=== PATIENT | female | born 1960 | race African-American/Black ===

== ENCOUNTER 2017-06-22 08:17 | Observation (INO) | payer SELFPAY ==
[2017-06-22 08:48] LABS: #Basophils 0.1 thou/uL (0.0-0.2); #Eosinphils 0.2 thou/uL (0.0-0.7); #Lymphocytes 2.7 thou/uL (1.20-3.40); #Monocytes 0.7 thou/uL (0.11-0.59); #Neutrophils 5.1 thou/uL (1.40-6.50); %Basophils 0.6 % (0.0-1.0); %Lymphocytes 31.3 % (21.0-51.0); %Monocytes 8.1 % (0.0-10.0); Hemoglobin 12.2 g/dL (12.0-16.0); Mean Corpuscular Hemoglobin 26.9 pg (27.0-31.0); Mean Corpuscular Volume 86.6 fl (81.0-99.0); Mean Platelet Volume 7.8 fL (7.4-10.4); Platelet Count 320 thou/uL (130-400); RBC Distribution Width 13.3 % (11.5-14.5); Red Blood Cell (RBC) Count 4.53 mill/uL (4.20-5.40); White Blood Cell (WBC) Count 8.8 thou/uL (4.8-10.8)
[2017-06-22] MEDS ORDERED: Metoprolol Tartrate 5 MG/5 ML VIAL ONE ×2 (08:50→11:06)
[2017-06-22 08:58] LABS: ALT (SGPT) 12 U/L (8-55); AST (SGOT) 14 U/L (5-34); Albumin 4.2 g/dL (3.5-5.0); Alkaline Phosphatase 117 U/L (40-150); Anion Gap 13 mmol/L (10-20); BUN (Urea Nitrogen) 22 mg/dL (9.8-20.1); Bilirubin, Total 0.2 mg/dL (0.2-1.2); CK (CPK) 69 U/L (29-168); Calc. Creatinine Clearance 0 mL/min (70-130); Calcium 9.8 mg/dL (7.8-10.44); Carbon Dioxide 25 mmol/L (22-29); Chloride 104 mmol/L (98-107); Estimated GFR-MDRD 44; Globulin 3.6 g/dL (2.4-3.5); Glucose 110 mg/dL (70-105); Potassium 4.1 mmol/L (3.5-5.1); Protein, Total 7.8 g/dL (6.0-8.3); Sodium 138 mmol/L (136-145)
[2017-06-22 09:02] LABS: CKMB 0.8 ng/mL (0-6.6); Troponin I 0.015 ng/mL (< 0.028)
--- NOTE | 2017-06-22 09:24 | RAD ---
CHEST 1 VIEW: COMPARISON: 10/23/16. HISTORY: Chest pain. FINDINGS: Normal cardiac silhouette. Pulmonary vessels and hilum are normal. No mass. No consolidation. No osseous abnormalities or pneumothorax. IMPRESSION: No acute cardiopulmonary process. POS: [facility]
[2017-06-22] MEDS ORDERED: hydrALAZINE 20 MG/ML VIAL ONE (10:23)
[2017-06-22 11:47] LABS: Amphetamine Not Detected (NotDetected); Barbiturates Screen Not Detected (NotDetected); Benzodiazepine Screen Not Detected (NotDetected); Cocaine Metabolite Screen Not Detected (NotDetected); Medtox Control Line Valid? VALID (VALID); Medtox Reader # READER 1; Methadone Not Detected (NotDetected); Methamphetamine Not Detected (NotDetected); Opiate Screen Not Detected (NotDetected); Oxycodone Screen Not Detected (NotDetected); Phencyclidine (PCP) Not Detected (NotDetected); THC/Cannabinoid Screen Not Detected (NotDetected); Tricyclic Screen Not Detected (NotDetected)
[2017-06-22 11:59] LABS: Troponin I 0.012 ng/mL (< 0.028)
[2017-06-22] MEDS ORDERED: hydrALAZINE 20 MG/ML VIAL SLOW IVP PRN (13:17)
[2017-06-22] MEDS ORDERED: Loratadine 10 MG TAB PO PRN (13:17)
[2017-06-22] MEDS ORDERED: Senokot 8.6 MG TAB PO PRN (13:17)
[2017-06-22] MEDS ORDERED: Eucerin (Mineral Oil/Petrolatum,White) 30 gm Jar TOP PRN (13:17)
[2017-06-22] MEDS ORDERED: Sodium Chloride 0.65% Nasal 44 ML BOT EA NARE PRN (13:17)
[2017-06-22] MEDS ORDERED: Zolpidem Tartrate 5 MG TAB PO PRN (13:17)
[2017-06-22] MEDS ORDERED: Artificial Tears 18 DROP/0.9 ML EA EYE PRN (13:17)
[2017-06-22] MEDS ORDERED: Milk Of Magnesia 30 ML UDCUP PO PRN (13:17)
[2017-06-22] MEDS ORDERED: Loperamide HCl 2 MG CAP PO PRN (13:17)
[2017-06-22] MEDS ORDERED: Chloraseptic Spray 180 ml Bottle PO PRN (13:17)
[2017-06-22] MEDS ORDERED: cloNIDine 0.1 MG TAB PO PRN (13:17)
[2017-06-22] MEDS ORDERED: Mag-Al 1200 mg/1200 mg/30 ML UDCUP PO PRN (13:17)
[2017-06-22] MEDS ORDERED: Ondansetron ODT 4 MG TAB PO PRN (13:17)
[2017-06-22] MEDS ORDERED: Diabetic Tussin 200 MG/10 ML UDCUP PO PRN (13:17)
[2017-06-22] MEDS ORDERED: Nitroglycerin 0.4 MG TAB (25 Tab Bottle) SL PRN (13:17)
[2017-06-22] MEDS ORDERED: Ondansetron HCl/PF 4 MG/2 ML Vial IVP PRN (13:17)
[2017-06-22] MEDS ORDERED: Acetaminophen 325 MG TAB PO PRN (13:17)
--- NOTE | 2017-06-22 13:21 | HP ---
PRIMARY CARE PHYSICIAN: Dr. Gayle Ly at [facility]. REASON FOR ADMISSION: Hypertensive urgency and chest pain. HISTORY OF PRESENT ILLNESS: A 56-year-old female who has history of breast cancer o n tamoxifen therapy as well as history of hypertension and obesity who came to the emergency room for complaint of chest pain and headache. The patient reports that for the last 3 weeks she has on and off headache and chest pain. She feels a pounding sensation in her left side of chest. She denies a ny associated nausea, vomiting, diaphoresis. She feels sometimes shortness of breath. She sometimes feels tingling and numbness sensation in upper extremity on the left side. She was also having diff use headache which is predominantly occipital and throbbing in nature. The patient reports that she is taking blood pressure medication regularly, but her blood pressure is very difficult to control and most of the time it remains high. The patient took her home medicatio n today. Despite that, her blood pressure in the emergency room was 224/121. Patient did not have a ny focal motor or sensory symptoms. She did not have any blurred vision. She was not having any ort hopnea, PND, or leg swelling. She denies any fever or chills. She denies taking NSAIDs. She denies any excess salt intake. REVIEW OF SYSTEMS: The following complete review of systems was negative, unless otherwise mentioned in the HPI or below: Constitutional: Weight loss or gain, ability to conduct usual activities. Skin: Rash, itching. Eyes: Double vision, pain. ENT/Mouth: Nose bleeding, neck stiffness, pain, tenderness. Cardiovascular: Palpitations, dyspnea on exertion, orthopnea. Respiratory: Shortness of breath, wheezing, cough, hemoptysis, fever or night sweats. Gastrointestinal: Poor appetite, abdominal pain, heartburn, nausea, vomiting, constipation, or diarrhea. Genitourinary: Urgency, frequency, dysuria, nocturia. Musculoskeletal: Pain, swelling. Neurologic/Psychiatric: Anxiety, depression. Allergy/Immunologic: Skin rash, bleeding tendency. Please see my HPI for pertinent positive and negative. All other review of systems reviewed and nega tive except as mentioned in the HPI. PAST MEDICAL HISTORY: History of breast cancer, hypertension, gastroesophageal reflux disease, vitam in D deficiency, obesity. PAST SURGICAL HISTORY: Breast biopsy, left breast lumpectomy, , hysterectomy, right knee camacho rgery with meniscectomy and chondroplasty, left knee surgery with chondroplasty and meniscectomy, tub al ligation. PAST PSYCHIATRIC HISTORY: Reviewed and negative. SOCIAL HISTORY: The patient is and lives at home by herself. No history of tobacco, alcohol or illicit drug abuse. FAMILY HISTORY: No strong family history of premature coronary artery disease, stroke or cancer, hyp ertension runs among several family members. One brother diagnosed with colon and prostate cancer. Mother in her old age, diagnosed with heart disease. One of sister also has kidney disease. ALLERGIES: HYDRALAZINE as per report. EMERGENCY ROOM COURSE: The patient is given hydralazine 10 mg IV push, metoprolol 5 mg IV push, meto prolol 5 mg IV push afterward. CURRENT HOME MEDICATIONS: Hydrochlorothiazide 25 mg p.o. daily, [place] 1 tablet q.6 hourly p.r.n., lo sartan 100 mg p.o. daily, Prilosec 40 mg p.o. daily, Tamoxifen 20 mg p.o. daily. PHYSICAL EXAMINATION: VITAL SIGNS: On arrival, blood pressure 224/121, pulse 93, respiratory rate 20, temperature 98.7, sa turation 97% on room air, weight 106.1 kilograms. GENERAL: The patient is currently alert, awake, no acute distress, hypertensive, chest pain free. HEENT: Normocephalic, atraumatic. Eyes: Pupils round, reactive to light. Extraocular muscle intac t. ENT: Oropharynx within normal limits. Moist mucous membranes. No oral lesions. No pharyngeal erythema, no exudate. NECK: Supple, no JVD, no thyromegaly, no carotid bruit, no jugular venous distention. LUNGS: Clear to auscultation without any rhonchi or rales. CARDIAC: S1, S2 regular without any murmur. ABDOMEN: Obesity present. Bowel sounds present, nontender, nondistended. No organomegaly, no mass, no suprapubic tenderness. BACK: Unremarkable, no CVA tenderness. EXTREMITIES: Upper extremity passive movement of all joints are normal. Lower extremities: No antonio a. Good peripheral pulsation. SKIN: No skin rash. HEMATOLOGIC: No lymphadenopathy. PSYCHIATRIC: Normal affect. NEUROLOGIC: The patient is alert, oriented x3. Cranial nerves II-XII intact. Motor 5/5 in all four limbs. Sensation bilaterally symmetrical. No cerebellar sign. Speech normal. Planter bilateral f lexor. Gait normal. SIGNIFICANT LABS: EKG showing normal sinus rhythm, LVH with T-wave changes in lateral leads. Chest x-ray based on my review, no acute cardiopulmonary process. CBC: WBC 8.8, hemoglobin 12.2, platelets 320. BMP: Sodium 138, potassium 4.1, chloride 104, carbon dioxide 25, anion gap 13, BUN 22, creatinine 1.44, glucose 110, calcium 9.8. LFT: AST 14, ALT 12, alkaline phosphatase 117, albumin 4.2, CK 69, CK-MB 0.8, troponin I 0.015 and 0 .012. Urine drug screen negative. ASSESSMENT AND PLAN: 1. Hypertensive urgency. This patient's blood pressure is very high on admission consistent with hy pertensive urgency. We will keep this patient in the hospital. We will adjust her blood pressure me dication and will verify her home medication and restarted selected home medication. We will continu e with nitro patch q.8h. We will use p.r.n. hydralazine, clonidine and labetalol p.r.n. basis. 2. Chest pain. The patient's chest pain description is atypical, most likely related with hypertens umesh urgency. This patient has T-wave changes in lateral leads, most likely that is also related with repolarization changes from hypertension and LVH. At this point, underlying cardiac ischemia needs to be excluded. This patient has low probability of coronary artery disease. We will check lipid pr ofile tomorrow morning. We will continue nitropatch q.8 hourly. We will continue with aspirin 325 m g p.o. daily. We will perform a Cardiolite stress test tomorrow morning for risk stratification. 3. Headache, most likely related with high blood pressure. At this point, the patient will need sym ptomatic treatment. This patient does not have any focal neurological deficit. Her neurological exa mination is completely normal. 4. Obesity. Dietary education given, weight loss education given. Healthy lifestyle measures discu ssed with the patient. 5. History of breast cancer. We will continue tamoxifen as per home dosage. 6. Chronic kidney disease stage 3. We will monitor renal function, most likely related with hyperte nsive nephrosclerosis. We will check urinalysis. 7. Deep venous thrombosis prophylaxis not needed because we are expecting discharge in 24 hours. 8. Gastrointestinal prophylaxis, Protonix 40 mg p.o. daily. 9. Code status: The patient is full CODE. The patient's is surrogate decision maker. Disposition and plan based on clinical course, likely within 24 hours. Plan of care discussed with t he patient in detail.
[2017-06-22 13:45] VITALS: BMI 43.0
[2017-06-22] MEDS: Nitroglycerin 2% Ointment 1 INCH/1 GM Packet TOP SCH ×3 (14:04→20:54)
[2017-06-22 14:31] LABS: Bilirubin Negative (Negative); Blood, Urine Negative (Negative); Clarity CLEAR (Clear); Glucose, Urine (Dipstick) Negative (Negative); Leukocyte Negative (Negative); Nitrite Negative (Negative); Protein, Urine (Dipstick) Negative (Neg-Trace); Specific Gravity, Urine 1.011 (1.002-1.036); Urobilinogen 0.2 mg/dL (0.2-1.0)
[2017-06-22 14:36] LABS: Bacteria/HPF Rare-Few HPF (None Seen); Hyaline Casts/LPF 0-3 HYALINE CAST LPF (0-3 Hyaline); RBC/HPF 0-3 HPF (0-3); Squamous Epithelial 0-3 HPF (0-3); WBC/HPF 0-3 HPF (0-3)
[2017-06-22] MEDS: HYDROcodone/Acetaminophen 5/325 mg Tablet PO PRN ×2 (15:12→20:50)
[2017-06-22 15:44] LABS: Troponin I 0.022 ng/mL (< 0.028)
[2017-06-22] MEDS: Famotidine 20 MG TAB PO SCH (20:50)
[2017-06-23 05:25] LABS: Cardiac Risk 5.7 (Less than 4.5)
[2017-06-23] MEDS ORDERED: Losartan 25 MG TAB PO SCH (09:00)
[2017-06-23] MEDS ORDERED: Hydrochlorothiazide 25 MG TAB PO SCH (09:00)
[2017-06-23] MEDS ORDERED: Aspirin 325 MG TAB PO SCH (09:00)
[2017-06-23] MEDS: Famotidine 20 MG TAB PO SCH (10:19)
[2017-06-23 11:46] VITALS: BP 142/88; TEMP 97.7
--- NOTE | 2017-06-23 12:10 | NM ---
NUCLEAR MEDICINE CARDIAC MYOCARDIAL PERFUSION SPECT EJECTION FRACTION STUDY WALL MOTION CINE: HISTORY: 56-year-old female with chest pain. TECHNIQUE: Number of days: 2 Rest study: Tc99m sestamibi (Cardiolite) dose: 27.0 mCi Pharmacologic stress: adenosine dose: 59.9 mg Stress study: Tc99m sestamibi (Cardiolite) dose: 29.9 mCi FINDINGS: CARDIAC (MYOCARDIAL PERFUSION) SPECT There are no reversible myocardial perfusion defects. EJECTION FRACTION STUDY EF = 62% WALL MOTION CINE Focal inferoseptal hypokinesis. IMPRESSION: No evidence of reversible ischemia. KADE Briceno POS: [facility]
--- NOTE | 2017-06-23 17:35 | DIS ---
DATE OF DISCHARGE: 06/23/2017 DISCHARGE DISPOSITION: Home. FOLLOWUP: Follow up with primary care physician at [facility] in 1 week. ALLERGIES: The patient is allergic to HYDRALAZINE. INPATIENT CONSULTANTS: None. The patient was seen and examined on the day of discharge: Denies any new complaints. No chest pain , shortness of breath, palpitations. BRIEF HOSPITAL COURSE: The patient is a 56-year-old -[place] female with hypertension and mo rbid obesity, presented to the hospital with chest discomfort with elevated blood pressure. Please r efer to the history and physical dated 06/22/2017 for further details. The patient was admitted to the hospital with a diagnosis of chest discomfort, probably secondary to hypertensive urgency. Her blood pressure on ER arrival was 224/121. She received a total of 10 mg o f metoprolol along with 10 mg of IV hydralazine in the emergency room with good improvement in her bl ood pressure. She underwent a Cardiolite stress test that was negative for reversible ischemia. Eje ction fraction was 62%. Blood pressure at the time of discharge is 142/88. No changes in antihypert ensive medications were made. A prescription for clonidine has been provided. Lifestyle modificatio n was emphasized. FINAL DIAGNOSES: 1. Chest discomfort, acute coronary syndrome ruled out. Troponins were negative. 2. Hypertensive urgency, resolved. 3. Chronic kidney disease stage III, probably secondary to longstanding hypertension. 4. Morbid obesity with BMI of 43. 5. History of breast cancer, on tamoxifen. Plan of care was discussed with the patient in detail. She stated understanding.
== END 2017-06-23 12:17 | disposition home or self-care (01) ==
LOC: ERS 08:17 → 2SW 11:03
PROVIDERS: ADMIT Internal Medicine; ATTEND Internal Medicine
DX: I16.0 Hypertensive urgency (principal); R07.89 Other chest pain; I12.9 Hypertensive chronic kidney disease with stage 1 through stage 4 chronic kidney disease, or unspecified chronic kidney disease; K21.9 Gastro-esophageal reflux disease without esophagitis; C50.919 Malignant neoplasm of unspecified site of unspecified female breast; N18.3 Chronic kidney disease, stage 3 (moderate); E66.01 Morbid (severe) obesity due to excess calories; Z68.41 Body mass index [BMI] 40.0-44.9, adult; Z88.8 Allergy status to other drugs, medicaments and biological substances; Z79.899 Other long term (current) drug therapy; Z90.710 Acquired absence of both cervix and uterus; Z98.51 Tubal ligation status; Z98.891 History of uterine scar from previous surgery; Z98.890 Other specified postprocedural states; Z82.49 Family history of ischemic heart disease and other diseases of the circulatory system
CPT/HCPCS: 36415; 71045; 78452; 80053; 80061; 80306; 81001; 82553; 84484; 85025; 93005; 93017; 94760; 96374; 96375; 96376; A4216; A9500; G0378; J0153; J0360

== ENCOUNTER 2017-09-08 14:13 | Emergency (ER) | payer SELFPAY | END 2017-09-08 15:39 | disposition home or self-care (01) | LOC: ERS 14:13 | DX: N61.0 Mastitis without abscess (principal); M16.12 Unilateral primary osteoarthritis, left hip; I10 Essential (primary) hypertension; Z85.3 Personal history of malignant neoplasm of breast; Z79.899 Other long term (current) drug therapy | CPT/HCPCS: 99283 ==

== ENCOUNTER 2017-10-19 08:17 | Emergency (ER) | payer SELFPAY | END 2017-10-19 09:13 | disposition home or self-care (01) | LOC: ERS 08:17 | DX: M54.6 Pain in thoracic spine (principal); I10 Essential (primary) hypertension; Z85.3 Personal history of malignant neoplasm of breast | CPT/HCPCS: 99283 ==

== ENCOUNTER 2017-12-14 16:45 | Emergency (ER) | payer SELFPAY ==
--- NOTE | 2017-12-14 17:14 | RAD ---
SINGLE VIEW CHEST: HISTORY: Chest pain for one hour. COMPARISON: 06/22/2017 FINDINGS: Single view of the chest show normal sized cardiomediastinal silhouette. There is no evidence of cons olidation, mass, or pleural effusion. The bones are unremarkable. IMPRESSION: No evidence of acute cardiopulmonary disease. POS: [facility]
[2017-12-14 17:33] LABS: #Basophils 0.1 thou/uL (0.0-0.2); #Eosinphils 0.2 thou/uL (0.0-0.7); #Lymphocytes 2.6 thou/uL (1.20-3.40); #Monocytes 0.6 thou/uL (0.11-0.59); #Neutrophils 4.1 thou/uL (1.40-6.50); %Basophils 0.7 % (0.0-1.0); %Eosinophils 3.1 % (0.0-10.0); %Monocytes 7.9 % (0.0-10.0); %Neutrophils 54.2 % (42.0-75.0); Hemoglobin 12.3 g/dL (12.0-16.0); Mean Corpuscular HGB CONC 32.7 g/dL (32.0-36.0); Mean Corpuscular Hemoglobin 27.5 pg (27.0-31.0); Platelet Count 296 thou/uL (130-400); RBC Distribution Width 13.6 % (11.5-14.5); Red Blood Cell (RBC) Count 4.47 mill/uL (4.20-5.40); White Blood Cell (WBC) Count 7.6 thou/uL (4.8-10.8)
[2017-12-14 17:55] LABS: ALT (SGPT) 12 U/L (8-55); AST (SGOT) 14 U/L (5-34); Albumin 4.3 g/dL (3.5-5.0); Alkaline Phosphatase 119 U/L (40-150); Anion Gap 12 mmol/L (10-20); BUN (Urea Nitrogen) 19 mg/dL (9.8-20.1); Bilirubin, Total 0.2 mg/dL (0.2-1.2); CK (CPK) 67 U/L (29-168); Calc. Creatinine Clearance 0 mL/min (70-130); Calcium 9.8 mg/dL (7.8-10.44); Carbon Dioxide 25 mmol/L (22-29); Chloride 107 mmol/L (98-107); Estimated GFR-MDRD 57; Globulin 3.6 g/dL (2.4-3.5); Glucose 115 mg/dL (70-105); Protein, Total 7.9 g/dL (6.0-8.3); Sodium 140 mmol/L (136-145)
[2017-12-14 17:59] LABS: CKMB 0.7 ng/mL (0-6.6); Troponin I Less than 0.010 ng/mL (< 0.028)
[2017-12-14] MEDS ORDERED: Nitroglycerin 2% Ointment 1 INCH/1 GM Packet ONE (18:20)
[2017-12-14] MEDS ORDERED: Nitroglycerin 0.4 MG TAB (25 Tab Bottle) ONE (18:20)
[2017-12-14] MEDS ORDERED: cloNIDine 0.1 MG TAB ONE (19:33)
[2017-12-14] MEDS ORDERED: Lidocaine 2% Viscous Solution 20 ML, Aluminum & Magnesium Hydroxide 30 ML, Donnatal Eli... SSW SCH (20:30)
[2017-12-14] MEDS ORDERED: Mag-Al 1200 mg/1200 mg/30 ML UDCUP ONE (20:34)
[2017-12-14] MEDS ORDERED: Lidocaine Viscous Sol 2% 15 ml UD Cup ONE (20:34)
[2017-12-14 22:03] LABS: Troponin I Less than 0.010 ng/mL (< 0.028)
== END 2017-12-14 22:24 | disposition home or self-care (01) ==
LOC: ERS 16:45
DX: R07.2 Precordial pain (principal); I10 Essential (primary) hypertension; K21.9 Gastro-esophageal reflux disease without esophagitis; Z79.899 Other long term (current) drug therapy
CPT/HCPCS: 36415; 71045; 80053; 82553; 84484; 85025; 93005

== ENCOUNTER 2018-08-12 15:28 | Outpatient (CLI) | payer OTHER ==
--- NOTE | 2018-08-12 18:23 | MMO ---
Bilateral MAMMO Bilat Screen [facility]. CLINICAL HISTORY: Patient is 57 years old and is seen for screening. VIEWS: The views performed were: . FILMS COMPARED: The present examination has been compared to prior imaging studies performed at [facility] on 08/25/2012, 09/08/2012 and 06/15/2013, and at and 04/03/2016. MAMMOGRAM FINDINGS: There are scattered fibroglandular densities. Benign calcifications are noted bilaterally. There are no suspicious masses, calcifications or areas of architectural distortion. Right biopsy clip. Left biopsy clip. IMPRESSION: FINDINGS IN BOTH BREASTS ARE BENIGN. A ROUTINE FOLLOW-UP MAMMOGRAM IN 1 YEAR IS RECOMMENDED. THE RESULTS OF THIS EXAM WERE SENT TO THE PATIENT. ACR BI-RADS Category 2 - Benign finding MAMMOGRAPHY NOTE: 1. A negative mammogram report should not delay a biopsy if a dominant of clinically suspicious mass is present. 2. Approximately 10% to 15% of breast cancers are not detected by mammography. 3. Adenosis and dense breasts may obscure an underlying neoplasm.
== END 2018-08-12 15:29 | disposition home or self-care (01) ==
LOC: BICMAMMO 15:28
PROVIDERS: ATTEND Family Medicine
DX: Z12.31 Encounter for screening mammogram for malignant neoplasm of breast (principal)
CPT/HCPCS: 77063; 77067

== ENCOUNTER 2018-09-23 14:00 | Inpatient (IN) | payer OTHER ==
[2018-09-28] MEDS ORDERED: Vancomycin HCl 1.5 GM in Sodium Chloride 0.9% 250 ML 300 ML IVPB SCH ×2 (06:15→20:00)
[2018-09-28] MEDS ORDERED: Midazolam HCl 2 mg/2 ml Vial ONE (06:24)
[2018-09-28] MEDS ORDERED: Fentanyl 100 MCG/2 ML VIAL ONE ×5 (06:24→10:44)
[2018-09-28] MEDS ORDERED: Bupivacaine/Epinephrine 0.25% 30 ML VIAL ONE (06:44)
[2018-09-28] MEDS ORDERED: traMADol HCl 50 MG TAB PO PRN ×2 (06:50→09:02)
[2018-09-28] MEDS ORDERED: Ropivacaine HCl/PF 250 ML in Premix Bag 1 BAG NERVE BLCK SCH (06:50)
[2018-09-28] MEDS ORDERED: HYDROcodone/Acetaminophen 10/325 mg Tablet PO PRN ×3 (06:50→09:02)
[2018-09-28] MEDS ORDERED: Zolpidem Tartrate 5 MG TAB PO PRN ×2 (06:50→09:02)
[2018-09-28] MEDS ORDERED: Promethazine HCl 25 MG/ML VIAL IM PRN ×2 (06:50→09:02)
[2018-09-28] MEDS ORDERED: Ondansetron PF 4 MG/2 ML Vial IVP PRN ×2 (06:50→09:02)
[2018-09-28] MEDS ORDERED: Fentanyl 100 MCG/2 ML VIAL IV PRN (06:51)
[2018-09-28] MEDS ORDERED: Nitroglycerin 2% Ointment 1 INCH/1 GM Packet ONE (07:57)
[2018-09-28] MEDS ORDERED: Morphine 10 MG/ML VIAL ONE (08:24)
[2018-09-28] MEDS ORDERED: Acetaminophen 325 MG TAB PO PRN (09:02)
[2018-09-28] MEDS ORDERED: Fentanyl 100 MCG/2 ML VIAL SLOW IVP PRN ×2 (09:02)
[2018-09-28] MEDS ORDERED: diphenhydrAMINE 25 MG CAP PO PRN (09:02)
[2018-09-28] MEDS ORDERED: Ketorolac Tromethamine 30 MG/ML VIAL IVP PRN (09:02)
[2018-09-28] MEDS ORDERED: Labetalol HCl 100 MG/20 ML VIAL ONE (09:14)
--- NOTE | 2018-09-28 09:54 | RAD ---
Exam: Right knee 2 views: HISTORY: Recent total knee replacement Findings/Impression: Recent total knee replacement. No dislocation or acute fracture.
[2018-09-28] MEDS ORDERED: Promethazine HCl 25 MG/ML VIAL IM/IV PRN (10:15)
[2018-09-28] MEDS ORDERED: Ondansetron HCl/PF 4 MG/2 ML Vial IVP PRN (10:15)
[2018-09-28] MEDS ORDERED: cloNIDine 0.1 MG TAB PO PRN (11:37)
[2018-09-28] MEDS ORDERED: tiZANidine HCl 4 MG TAB PO PRN (11:41)
--- NOTE | 2018-09-28 11:41 | OP ---
DATE OF PROCEDURE: 09/28/2018 PREOPERATIVE DIAGNOSIS: Right knee osteoarthritis. POSTOPERATIVE DIAGNOSIS: Right knee osteoarthritis. PROCEDURE PERFORMED: Right total knee arthroplasty. PAEDODONTIST: Kelly Joiner PA-C ANESTHESIOLOGIST: Rosalino Welch MD. ANESTHESIA: The patient received a LMA adductor canal block with single-shot sciatic. ESTIMATED BLOOD LOSS: 100 mL. TOURNIQUET TIME: 71 minutes at 300 mmHg. ANTIBIOTICS: Ancef 2 g, vancomycin 1.5 and TXA 1 g. IMPLANTS: Kayce Triathlon size 3 CR femur, a size 3 tibial base plate, a CS 9 mm poly and S27 poly. COMPLICATIONS: None. HISTORY OF PRESENT ILLNESS: Ms. Weston is a 57-year-old female with bilateral knee pain and history of previous right knee arthroscopy. The patient had severe pain in her right knee, had failed conservative measures and desired to undergo right total knee arthroplasty. The patient preoperatively had a slightly low hematocrit and slightly elevated creatinine. I discussed we would keep her NSAIDs at a minimum as well as maintain her blood counts for anemia and discussed for a followup postoperatively. I discussed with the patient risks and benefits of right total knee arthroplasty to include pain, scar, bleeding, infection, damage to vital structures, decreased range of motion, nonunion, malunion, fracture above or below the stem, need for revision, blood clots, damage to vital structures, loss of life or limb. The patient understood the risks and benefits and elected to proceed. DESCRIPTION OF PROCEDURE: Time-out was performed, identifying the patient's right lower extremity as the operative site, based on site, consents, and marking. After time-out, she was prepped and draped in sterile fashion. Tourniquet was brought about the left for a total of 71 minutes. Anterior midline incision was made, medial patellar arthrotomy, then medial release excised the fat pad, everted the patella, mapped out the distal femur, cut 2 degrees of varus and valgus, 7, 10 and 4 degrees slope. Placed our external jig in place and trialed our 3-degree external rotation guide and trialed for a size 3, cut our anterior, posterior and chamfer cuts, removed the osteophytes and bone. We then moved and placed our pickle fork in position and exposed the patient's tibia. We cut off the tibial remnants and released ACL. We notched out the tibia cut 0 degrees of varus and valgus , 4 degrees of slope, removed the osteophytes and exposed the patient. With lamina mergers and acquisitions associate, we took down the patient's medial and lateral menisci, took down the posterior osteophytes from the knee. We released the PCL to help with extension although she already had hyperextension. We pinned our tray and lined with the tibial tubercle, anterior 1/3 down the tibial spine, medialized, placed our 9 mm poly, placed our femur. We came in about neutral attending maybe 5-10 degrees of hyperextension, which is less than hypertension she had pre-surgery. The patient has had good tracking, varus and valgus stress as well as flexion and extension. I liked the overall stability, elected to stay with those polys. We then everted the patella. The patella only measured about 19-20 mm at its thickest. I cut down to about 11 mm, placed the symmetric 27 poly. She tracked overall well. I removed our instruments, drilled our lugs for our femur and our keel for tibia. We removed all implants, washed. We then cemented the tibia, removed excess cement. We cemented the femur, removed excess cement with the patient in extension, we cemented our patella, removed excess cement, look for flexing knee back up excess cement, washed the joint out and then began closing arthrotomy with #2 Vicryl, 0 StrataFix, 2-0 StrataFix and glue. Patient had tourniquet down at 71 minutes. The patient will be admitted per [place] protocol. The patient will be followed in-house by Medicine. Job ID: [id number]
[2018-09-28] MEDS: Aspirin 81 mg Enteric Coated Tablet PO SCH ×2 (11:59→20:38)
[2018-09-28] MEDS ORDERED: CEFAZOLIN 2 GM in Premix Bag 1 BAG IVPB SCH (12:00)
[2018-09-28] MEDS: Multivitamin W/ Minerals 1 TAB PO SCH (12:00)
[2018-09-28] MEDS: Sodium Chloride 0.9% 1,000 ML IV SCH ×2 (12:00→19:28)
[2018-09-28] MEDS: Senokot S 8.6-50 MG TAB PO SCH ×2 (12:00→20:38)
[2018-09-28] MEDS: Ferrous Gluconate 324 MG TAB PO SCH ×2 (12:00→20:38)
--- NOTE | 2018-09-28 13:41 | PDOC.FPRHP ---
- History of Present Illness Chief Complaint: Consult for medical management after right TKR History of Present Illness: 57 year old female s/p right total knee replacement. FPR's were consulted regarding medical management. Patient states she has a history of HTN, arthritis , GERD, anemia, and CKD. Her pain is well controlled with current medication regimen. She denies any chest pain, shortness of breath, N/V. - Allergies/Adverse Reactions Allergies Allergy/AdvReac Type Severity Reaction Status Date / Time hydralazine Allergy Hives Verified 09/27/18 11:23 - Home Medications Medication Instructions Recorded Confirmed Type Losartan [Cozaar] 100 mg PO QAM 06/22/17 09/28/18 History Omeprazole 40 mg PO HS 06/22/17 09/28/18 History cloNIDine HCl 0.1 mg PO BID PRN #20 tablet 06/23/17 09/28/18 Rx Metoprolol Succinate 1 tab PO HS 09/27/18 09/28/18 History traMADol HCl [Tramadol HCl] 1 tab PO ASDIR PRN 09/27/18 09/28/18 History - History PMHx: HTN, arthritis, GERD, CKD stage II, Anemia PSHx: BTL, hysterectomy, ganglion cyst removal on right arm, removal of cysts from ovaries, lumpectomy on left breast FHx: Noncontributory - Review of Systems General: denies: fever/chills, weight/appetite/sleep changes ENT: denies: nasal congestion, rhinorrhea Respiratory: denies: cough, congestion, shortness of breath Cardiovascular: denies: chest pain, palpitation, edema Gastrointestinal: denies: nausea, vomiting, abdominal pain Genitourinary: denies: incontinence, dysuria Skin: denies: rashes, lesions Musculoskeletal: reports: pain, tenderness, stiffness, arthritis/arthralgias Neurological: denies: numbness, syncope Psychological: denies: anxiety, depression - Vital signs BP: 122/72 HR: 88 RR: 16 Tmax: 98.4F Pox: 96% on RA Wt: 104 kg - Physical Exam Constitutional: NAD, awake, alert and oriented HEENT: EOMI, grossly normal vision, grossly normal hearing Heart: RRR, normal S1/S2 Lungs: CTAB, no respiratory distress Abdomen: soft, non-tender, bowel sounds present -Musculoskeletal: Right leg with KENNEDY bandage. Neurological: no focal deficit Skin: no rash/lesions, capillary refill <2 seconds Heme/Lymphatic: no unusual bruising or bleeding, no purpura FMR H&P: A/P - Problem List (1) HTN (hypertension) Current Visit: Yes Status: Acute Code(s): I10 - ESSENTIAL (PRIMARY) HYPERTENSION (2) CKD (chronic kidney disease) stage 2, GFR 60-89 ml/min Current Visit: Yes Status: Acute Code(s): N18.2 - CHRONIC KIDNEY DISEASE, STAGE 2 (MILD) (3) GERD (gastroesophageal reflux disease) Current Visit: Yes Status: Acute Code(s): K21.9 - GASTRO-ESOPHAGEAL REFLUX DISEASE WITHOUT ESOPHAGITIS (4) Anemia Current Visit: Yes Status: Acute Code(s): D64.9 - ANEMIA, UNSPECIFIED (5) Arthritis Current Visit: Yes Status: Acute Code(s): M19.90 - UNSPECIFIED OSTEOARTHRITIS, UNSPECIFIED SITE (6) Status post right knee replacement Current Visit: Yes Status: Acute Code(s): Z96.651 - PRESENCE OF RIGHT ARTIFICIAL KNEE JOINT - Plan s/p right total knee replacement - Surgery this AM - Pain control per ortho - Encourage early ambulation - DVT ppx HTN - Appears fairly well controlled at this point in time (145/92) - Will continue home medications and adjust as necessary GERD - Continue home medications Arthritis - Pain appears well controlled - Continue pain medications 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 We will continue to follow patient for management of chronic medical conditions during this hospitalization. Case discussed with Dr. Steiner who has seen and evaluated patient. Nancy Loving DO PGY-2 FMR H&P: Upper Level - Plan Date/Time: 09/28/18 8926 I, [], have evaluated this patient and agree with findings/plan as outlined by finance accounting internship resident. Pertinent changes/additions are listed here. Addendum - Attending - Attending Attestation Date/Time: 09/28/182030 I personally evaluated the patient and discussed the management with Dr. Loving I agree with the History, Examination, Assessment and Plan documented above with any addition or exceptions noted below- 57 yo female with h/o HTN, GERD, anemia admitted for right TKR. FM consulted for medical management. Patient without complaints. Pain well controlled. PMH/PSH/All/Meds reviewed and agree with residents documentation. Afebrile VSS Exam repeated by me and agree with residents findings. A/P: 1) OA s/p TKR- continue plans as per ortho. 2) HTN - well controlled; continue home meds.
[2018-09-28] MEDS: HYDROcodone/Acetaminophen 10/325 mg Tablet PO PRN ×2 (14:05→20:43)
[2018-09-28] MEDS: CEFAZOLIN 2 GM in Premix Bag 1 BAG IVPB SCH (16:10)
[2018-09-28] MEDS: traMADol HCl 50 MG TAB PO PRN (16:17)
[2018-09-29] MEDS: CEFAZOLIN 2 GM in Premix Bag 1 BAG IVPB SCH
[2018-09-29] MEDS: Sodium Chloride 0.9% 1,000 ML IV SCH ×2 (04:28→14:05)
[2018-09-29 05:31] LABS: Hemoglobin 9.7 g/dL (12.0-16.0); Mean Corpuscular HGB CONC 31.6 g/dL (32.0-36.0); Mean Corpuscular Hemoglobin 27.1 pg (27.0-31.0); Mean Platelet Volume 8.1 fL (7.4-10.4); Platelet Count 244 thou/uL (130-400); RBC Distribution Width 13.5 % (11.5-14.5); Red Blood Cell (RBC) Count 3.56 mill/uL (4.20-5.40); White Blood Cell (WBC) Count 15.3 thou/uL (4.8-10.8)
[2018-09-29] MEDS: Ferrous Gluconate 324 MG TAB PO SCH ×2 (08:40→21:19)
[2018-09-29] MEDS: HYDROcodone/Acetaminophen 10/325 mg Tablet PO PRN ×3 (08:40→18:29)
[2018-09-29] MEDS: Multivitamin W/ Minerals 1 TAB PO SCH (08:40)
[2018-09-29] MEDS: Aspirin 81 mg Enteric Coated Tablet PO SCH ×2 (08:40→21:18)
[2018-09-29] MEDS: Senokot S 8.6-50 MG TAB PO SCH ×2 (08:40→21:19)
[2018-09-29] MEDS ORDERED: Losartan 25 MG TAB PO SCH ×2 (09:00)
--- NOTE | 2018-09-29 10:36 | PDOC.FM ---
- Subjective Subjective: Patient doing well this AM. No significant overnight events. She has been ambulating, and is sitting in chair next to bed this AM. - Objective MAR Reviewed: Yes Vital Signs & Weight: Vital Signs (12 hours) Temp Pulse Resp BP Pulse Ox 09/29/18 07:34 98.6 F 88 16 123/80 94 L 09/29/18 04:21 98.2 F 83 20 104/64 97 09/29/18 00:00 98.6 F 85 20 111/76 100 Weight Weight 104.326 kg I&O: 09/28/18 09/29/18 09/30/18 06:59 06:59 06:59 Intake Total 3600 Output Total 850 Balance 2750 Result Diagrams: 09/30/18 04:34 09/30/18 04:34 EKG Reviewed by me: No Radiology Reviewed by me: No Phys Exam - Physical Examination Constitutional: NAD HEENT: moist MMs Respiratory: clear to auscultation bilateral Cardiovascular: RRR Gastrointestinal: soft, no distention Musculoskeletal: no edema Neurological: non-focal, moves all 4 limbs Psychiatric: normal affect, A&O x 3 Skin: no rash, cap refill <2 seconds Dx/Plan (1) HTN (hypertension) Code(s): I10 - ESSENTIAL (PRIMARY) HYPERTENSION Status: Acute (2) CKD (chronic kidney disease) stage 2, GFR 60-89 ml/min Code(s): N18.2 - CHRONIC KIDNEY DISEASE, STAGE 2 (MILD) Status: Acute (3) GERD (gastroesophageal reflux disease) Code(s): K21.9 - GASTRO-ESOPHAGEAL REFLUX DISEASE WITHOUT ESOPHAGITIS Status: Acute (4) Anemia Code(s): D64.9 - ANEMIA, UNSPECIFIED Status: Acute (5) Arthritis Code(s): M19.90 - UNSPECIFIED OSTEOARTHRITIS, UNSPECIFIED SITE Status: Acute (6) Status post right knee replacement Code(s): Z96.651 - PRESENCE OF RIGHT ARTIFICIAL KNEE JOINT Status: Acute - Plan Plan: s/p right total knee replacement - Post-op day #1 - Pain control per ortho - Encourage ambulation - DVT ppx HTN - Appears well controlled - Continue current medication regimen GERD - Continue home medications Arthritis - Pain appears well controlled - Continue pain medications 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 Anemia - Continue iron Dispo: Stable. We will continue to follow patient for management of chronic medical conditions during this hospitalization. Addendum - Attending - Attending Attestation Date/Time: 09/30/18 1015 I personally evaluated the patient and discussed the management with Dr. Loving on 09/29/2018 I agree with the History, Examination, Assessment and Plan documented above with any addition or exceptions noted below - Patient without complaints. Walking with PT. Afebrile VSS. A/P: 1) HTN- BP well controlle with home regimen. Continue current meds. 2) OA s/p Left TKR- plans as per ortho
[2018-09-29] MEDS: Cephalexin 250 MG CAP PO SCH ×2 (11:04→18:29)
[2018-09-29 13:19] VITALS: BMI 40.7
[2018-09-29] MEDS: traMADol HCl 50 MG TAB PO PRN (21:23)
[2018-09-30] MEDS: Cephalexin 250 MG CAP PO SCH ×3 (01:40→11:28)
[2018-09-30] MEDS: Sodium Chloride 0.9% 1,000 ML IV SCH ×2 (01:42→11:35)
[2018-09-30] MEDS: HYDROcodone/Acetaminophen 10/325 mg Tablet PO PRN ×2 (04:13→09:45)
[2018-09-30 04:43] LABS: Hemoglobin 10.4 g/dL (12.0-16.0); Mean Corpuscular HGB CONC 31.3 g/dL (32.0-36.0); Mean Corpuscular Hemoglobin 26.8 pg (27.0-31.0); Mean Corpuscular Volume 85.5 fL (78.0-98.0); Platelet Count 265 thou/uL (130-400); RBC Distribution Width 13.9 % (11.5-14.5); Red Blood Cell (RBC) Count 3.87 mill/uL (4.20-5.40); White Blood Cell (WBC) Count 16.7 thou/uL (4.8-10.8)
[2018-09-30 04:55] LABS: Anion Gap 12 mmol/L (10-20); BUN (Urea Nitrogen) 12 mg/dL (9.8-20.1); Calc. Creatinine Clearance 115 mL/min (70-130); Calcium 8.7 mg/dL (7.8-10.44); Carbon Dioxide 23 mmol/L (22-29); Chloride 104 mmol/L (98-107); Estimated GFR-MDRD 79; Glucose 124 mg/dL (70-105); Potassium 4.3 mmol/L (3.5-5.1); Sodium 135 mmol/L (136-145)
--- NOTE | 2018-09-30 08:53 | PDOC.FM ---
- Subjective Subjective: Patient doing well this AM. No significant overnight events. She states she will be getting a wound care vac today. I spoke with patient again today and confirmed that she should not be taking two ARBS (olmesartan and losartan). She states she should only be taking losartan. Patient has been able to ambulate. She denies N/V, constipation, diarrhea, chest pain, or shortness of breath. - Objective MAR Reviewed: Yes Vital Signs & Weight: Vital Signs (12 hours) Temp Pulse Resp BP Pulse Ox 09/30/18 08:20 98.2 F 86 16 138/85 94 L 09/30/18 07:49 92 L 09/30/18 04:44 99.2 F 97 18 152/98 H 92 L 09/30/18 00:45 100.1 F H 97 16 151/92 H 95 Weight Admit Weight 104.326 kg Weight 104.326 kg I&O: 09/29/18 09/30/18 10/01/18 06:59 06:59 06:59 Intake Total 3600 900 Output Total 850 1100 200 Balance 2750 -200 -200 Result Diagrams: 09/30/18 04:34 09/30/18 04:34 EKG Reviewed by me: Yes Radiology Reviewed by me: Yes Phys Exam - Physical Examination Constitutional: NAD HEENT: moist MMs Respiratory: no wheezing, clear to auscultation bilateral Cardiovascular: RRR, no significant murmur Gastrointestinal: soft, no distention Musculoskeletal: no edema Neurological: non-focal, moves all 4 limbs Psychiatric: normal affect, A&O x 3 Deviation from normal: Right leg in brace Dx/Plan (1) HTN (hypertension) Code(s): I10 - ESSENTIAL (PRIMARY) HYPERTENSION Status: Acute (2) CKD (chronic kidney disease) stage 2, GFR 60-89 ml/min Code(s): N18.2 - CHRONIC KIDNEY DISEASE, STAGE 2 (MILD) Status: Acute (3) GERD (gastroesophageal reflux disease) Code(s): K21.9 - GASTRO-ESOPHAGEAL REFLUX DISEASE WITHOUT ESOPHAGITIS Status: Acute (4) Anemia Code(s): D64.9 - ANEMIA, UNSPECIFIED Status: Acute (5) Arthritis Code(s): M19.90 - UNSPECIFIED OSTEOARTHRITIS, UNSPECIFIED SITE Status: Acute (6) Status post right knee replacement Code(s): Z96.651 - PRESENCE OF RIGHT ARTIFICIAL KNEE JOINT Status: Acute - Plan Plan: s/p right total knee replacement - Post-op day #2 - Pain control per ortho - Encourage ambulation - DVT ppx HTN - Some BP's in 150's/100's range - Will d/c Olmesartan as patient should never be on two ARBs; I confirmed with patient that she is indeed not taking both losartan and olmesartan at home. - Will start Losartan/HCTZ for better BP control GERD - Continue home medications Arthritis - Pain appears well controlled - Continue pain medications 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 Anemia - Continue iron Dispo: Stable. We will continue to follow patient for management of chronic medical conditions during this hospitalization. I did d/c olmesaratan as patient should never take two ARBs and patient confirmed that at home she only takes losartan. I will add HCTZ to regimen for better control. Will need to monitor closely as patient had BP's in low 100's yesterday with just losartan. She did have several BP's in 150's overnight. Addendum - Attending - Attending Attestation Date/Time: 09/30/18 1037 I personally evaluated the patient and discussed the management with Dr. Loving. I agree with the History, Examination, Assessment and Plan documented above with any addition or exceptions noted below.. Consulted for chronic disease mgmt. BP well controlled currently. Agree that patient should never be on 2 different ARB's as this could lead to electrolyte abnmls as well as renal injury. Continue her home Losartan only. She should be stable for discharge whenever her primary team is ready for her to go.
[2018-09-30] MEDS: Aspirin 81 mg Enteric Coated Tablet PO SCH (09:39)
[2018-09-30] MEDS: Multivitamin W/ Minerals 1 TAB PO SCH (09:41)
[2018-09-30] MEDS: Senokot S 8.6-50 MG TAB PO SCH (09:41)
[2018-09-30] MEDS: Ferrous Gluconate 324 MG TAB PO SCH (09:41)
[2018-09-30 12:04] VITALS: BP 150/98; TEMP 98.1
== END 2018-09-30 12:47 | disposition home or self-care (01) | DRG 470 ==
LOC: SURG A 09-28 05:37 → SJJU 09-28 09:56
PROVIDERS: ADMIT Orthopaedic Surgery; ATTEND Orthopaedic Surgery
PROC: 0SRC0J9 Replacement of Right Knee Joint with Synthetic Substitute, Cemented, Open Approach (ICD-10-PCS; principal; 2018-09-28)
DX: M17.11 Unilateral primary osteoarthritis, right knee (principal); K21.9 Gastro-esophageal reflux disease without esophagitis; I12.9 Hypertensive chronic kidney disease with stage 1 through stage 4 chronic kidney disease, or unspecified chronic kidney disease; N18.2 Chronic kidney disease, stage 2 (mild); D64.9 Anemia, unspecified; Z88.8 Allergy status to other drugs, medicaments and biological substances; Z79.899 Other long term (current) drug therapy; Z90.710 Acquired absence of both cervix and uterus
CPT/HCPCS: 36415; 80048; 85027; 86850; 86900; 86901; C1713; C1776; J0690; J2250; J2270; J2795; J3010; J3370; J7050

== ENCOUNTER 2018-09-27 02:12 | Outpatient (CLI) | payer OTHER ==
[2018-09-27 12:58] LABS: Bilirubin Negative (Negative); Blood, Urine Negative (Negative); Clarity CLEAR (Clear); Glucose, Urine (Dipstick) Negative (Negative); Leukocyte Negative (Negative); Nitrite Negative (Negative); Protein, Urine (Dipstick) Negative (Neg-Trace); Specific Gravity, Urine 1.017 (1.002-1.036); Urobilinogen 0.2 mg/dL (0.2-1.0)
[2018-09-27 12:59] LABS: Mean Corpuscular HGB CONC 31.6 g/dL (32.0-36.0); Mean Corpuscular Hemoglobin 26.5 pg (27.0-31.0); Mean Corpuscular Volume 83.9 fL (78.0-98.0); Mean Platelet Volume 8.4 fL (7.4-10.4); Platelet Count 278 thou/uL (130-400); RBC Distribution Width 13.7 % (11.5-14.5); Red Blood Cell (RBC) Count 4.16 mill/uL (4.20-5.40); White Blood Cell (WBC) Count 8.1 thou/uL (4.8-10.8)
[2018-09-27 13:00] LABS: Bacteria/HPF None Seen HPF (None Seen); Hyaline Casts/LPF 0-3 HYALINE CAST LPF (0-3 Hyaline); RBC/HPF 0-3 HPF (0-3); Squamous Epithelial 0-3 HPF (0-3); WBC/HPF 0-3 HPF (0-3)
[2018-09-27 13:05] LABS: PTT 31.3 SEC (22.9-36.1); Prothrombin Time 13.4 SEC (12.0-14.7)
[2018-09-27 13:34] LABS: Anion Gap 9 mmol/L (10-20); BUN (Urea Nitrogen) 21 mg/dL (9.8-20.1); Calc. Creatinine Clearance 0 mL/min (70-130); Calcium 9.4 mg/dL (7.8-10.44); Carbon Dioxide 29 mmol/L (22-29); Chloride 106 mmol/L (98-107); Estimated GFR-MDRD 58; Glucose 96 mg/dL (70-105); Potassium 4.2 mmol/L (3.5-5.1); Sodium 140 mmol/L (136-145)
== END 2018-09-27 02:13 | disposition home or self-care (01) ==
LOC: LABBT 02:12
PROVIDERS: ATTEND Orthopaedic Surgery
DX: Z01.818 Encounter for other preprocedural examination (principal); M17.11 Unilateral primary osteoarthritis, right knee
CPT/HCPCS: 80048; 81001; 85027; 85610; 85730; 93005; 93010

== ENCOUNTER 2018-10-01 15:09 | Observation (INO) | payer OTHER ==
[2018-10-01] MEDS ORDERED: Lactated Ringer's 1,000 ML IV SCH (15:45)
[2018-10-01] MEDS ORDERED: HYDROcodone/Acetaminophen 10/325 mg Tablet PO PRN (15:53)
[2018-10-01] MEDS ORDERED: Ondansetron ODT 4 MG TAB PO PRN (15:53)
[2018-10-01] MEDS ORDERED: traMADol HCl 50 MG TAB PO PRN (15:56)
[2018-10-01] MEDS ORDERED: Sodium Chloride 0.9% 1,000 ML IV SCH (16:00)
[2018-10-01] MEDS ORDERED: CEFAZOLIN 2 GM in Premix Bag 1 BAG IVPB SCH (16:00)
[2018-10-01] MEDS ORDERED: Vancomycin HCl 1.5 GM in Sodium Chloride 0.9% 250 ML 300 ML IVPB SCH (16:00)
[2018-10-01] MEDS ORDERED: Labetalol HCl 100 MG/20 ML VIAL ONE ×2 (16:03→18:17)
[2018-10-01] MEDS ORDERED: PROPOFOL 200 MG/20 ML VIAL ONE (16:12)
[2018-10-01] MEDS ORDERED: Lidocaine 1% PF 5 ML VIAL ONE (16:12)
[2018-10-01] MEDS ORDERED: Fentanyl 100 MCG/2 ML VIAL ONE ×3 (16:34→18:13)
[2018-10-01] MEDS ORDERED: Promethazine HCl 25 MG/ML VIAL SLOW IVP PRN (17:49)
[2018-10-01] MEDS ORDERED: Ondansetron HCl/PF 4 MG/2 ML Vial IVP PRN (17:49)
[2018-10-01] MEDS ORDERED: Promethazine HCl 25 MG/ML VIAL IM PRN (17:49)
--- NOTE | 2018-10-01 18:03 | OP ---
DATE OF PROCEDURE: 10/01/2018 PREOPERATIVE DIAGNOSIS: Hematoma, right knee. POSTOPERATIVE DIAGNOSIS: Hematoma, right knee. PROCEDURE PERFORMED: Arthrotomy of the right knee. ASSISTANTS: Abhilash Mitchell PA-C BLOOD LOSS: 100. SPECIMEN: None. DRAIN: None. COMPLICATION: None. DESCRIPTION OF PROCEDURE: The patient was taken to the operating room, where general anesthesia was induced. Right knee was prepped and draped in a sterile fashion. I did not use a tourniquet so I can see if there were any bleeders. I opened up the old incision and removed the old sutures. The hematoma was evacuated from the knee. I removed some solid clot and liquid hematoma. The retinaculum was repaired by with #2 Vicryl and then reinforced with #2 Stratafix. Subcu was closed with 0 Stratafix and skin was closed with 0 Prolene. Sterile dressing was applied. This was a bulky type dressing. The patient was placed in a knee immobilizer and plan was for non-mobilization of the knee for the next 48 hours. Job ID: [id number]
[2018-10-01] MEDS ORDERED: Promethazine HCl 25 MG/ML VIAL ONE (18:05)
[2018-10-01] MEDS ORDERED: HYDROmorphone 2 MG/ML VIAL ONE (18:16)
[2018-10-01] MEDS ORDERED: Diltiazem 125 MG in Sodium Chloride 0.9% 100 ML IVPB SCH (19:45)
[2018-10-01] MEDS ORDERED: cloNIDine 0.2 MG TAB PO SCH (20:30)
[2018-10-01] MEDS ORDERED: cloNIDine 0.1 MG TAB PO SCH (20:30)
[2018-10-01] MEDS ORDERED: Losartan 25 MG TAB PO SCH (20:30)
[2018-10-01 20:33] LABS: CKMB 0.8 ng/mL (0-6.6); Troponin I Less than 0.010 ng/mL (< 0.028)
[2018-10-01] MEDS ORDERED: Non-Formulary Item 1 EACH (Omeprazole [Omeprazole] 40 MG) PO SCH (21:00)
[2018-10-01] MEDS: Aspirin 81 mg Enteric Coated Tablet PO SCH (21:50)
[2018-10-01] MEDS: HYDROcodone/Acetaminophen 10/325 mg Tablet PO PRN (21:51)
[2018-10-01 22:03] VITALS: BMI 43.3
--- NOTE | 2018-10-01 23:07 | PDOC.FPRHP ---
- History of Present Illness Chief Complaint: bleeding from knee History of Present Illness: CONSULTATION NOTE FOR MEDICAL MANAGEMENT 57 yo F with PMHx osteoarthritis presents as re-admission for hematoma at surgical site of R TKR. She reports that Thursday after the surgery she noticed some bleeding that resolved with pressure and bandage. This happened again on Thursday and she states that a "special" bandage was placed that helped to stop the bleeding. It continued after discharge and she called Dr. Abarca's office and he told her to come in for evaluation. She reports a history of paroxysmal a fib but states she never saw a blasting entryman for it and has never been on a blood thinner for it. She saw a blasting entryman once for HTN issues. She feels at times she can tell when her heart is acting up and she gets discomfort in the back of her neck. She had that once last week and once a few weeks ago. Denies any symptoms now, chest pain, shortness of breath. Per nursing, she was in a fib with rate in the 90s and very high BP upon completion of surgery so dilt drip was started at that time. - Allergies/Adverse Reactions Allergies Allergy/AdvReac Type Severity Reaction Status Date / Time hydralazine Allergy Hives Verified 09/27/18 11:23 - Home Medications Medication Instructions Recorded Confirmed Type Losartan [Cozaar] 100 mg PO QAM 06/22/17 10/01/18 History Omeprazole 40 mg PO HS PRN 06/22/17 10/01/18 History cloNIDine HCl 0.1 mg PO BID PRN #20 tablet 06/23/17 10/01/18 Rx Metoprolol Succinate 1 tab PO HS 09/27/18 10/01/18 History traMADol HCl [Tramadol HCl] 1 tab PO ASDIR PRN 09/27/18 10/01/18 History Aspirin [Ecotrin Low Strength] 81 mg PO BID tab 09/30/18 10/01/18 Rx HYDROcodone Bit/APAP 10/325 [[place] 1 - 2 tab PO Q4HR PRN 09/30/18 10/01/18 History 10/325] - History PMHx: HTN, paroxysmal a fib, GERD, arthritis, CKD 2, iron deficiency anemia PSHx: R TKR this week, BTL, partial hysterectomy, ganglion cyst removal in R arm , lumpectomy of L breast (2012) FHx: Mom with CAD Social: Lives with , denies t/a/d, not working - Review of Systems General: denies: fever/chills, weight/appetite/sleep changes Eyes: denies: eye pain, vision changes ENT: denies: nasal congestion, rhinorrhea Respiratory: denies: cough, congestion, shortness of breath Cardiovascular: denies: chest pain, palpitation Gastrointestinal: denies: nausea, vomiting Genitourinary: denies: incontinence, dysuria Skin: denies: rashes, lesions Musculoskeletal: reports: pain, swelling Neurological: denies: numbness, syncope - Vital signs BP: 152/86 HR: 92 RR: 16 Tmax: 99 Pox: 96% on RA Wt: 111 kg - Physical Exam Constitutional: NAD, awake, alert and oriented HEENT: normocephalic and atraumatic, PERRLA, conjunctiva clear, MMM Neck: supple, trachea midline, no bruits Chest: no-tender to palpation Heart: RRR, normal S1/S2, no murmurs/rubs/gallops Lungs: CTAB, no respiratory distress Abdomen: soft, non-tender, bowel sounds present Musculoskeletal: other (R knee in immobilizer) Neurological: no focal deficit Skin: capillary refill <2 seconds, no jaundice Heme/Lymphatic: other (no ongoing bleeding) Psychiatric: normal mood and affect, good judgment and insight, intact recent and remote memory FMR H&P: Results - Labs Result Diagrams: 10/02/18 04:48 10/02/18 04:48 Lab results: Creatine Kinase 91 U/L (29-168) 10/01/18 19:57 CK-MB (CK-2) 0.8 ng/mL (0-6.6) 10/01/18 19:57 FMR H&P: A/P - Problem List (1) Atrial fibrillation Current Visit: Yes Status: Acute Code(s): I48.91 - UNSPECIFIED ATRIAL FIBRILLATION (2) Anemia Current Visit: No Status: Acute Code(s): D64.9 - ANEMIA, UNSPECIFIED (3) Arthritis Current Visit: No Status: Acute Code(s): M19.90 - UNSPECIFIED OSTEOARTHRITIS , UNSPECIFIED SITE (4) CKD (chronic kidney disease) stage 2, GFR 60-89 ml/min Current Visit: No Status: Acute Code(s): N18.2 - CHRONIC KIDNEY DISEASE, STAGE 2 (MILD) (5) GERD (gastroesophageal reflux disease) Current Visit: No Status: Acute Code(s): K21.9 - GASTRO-ESOPHAGEAL REFLUX DISEASE WITHOUT ESOPHAGITIS (6) HTN (hypertension) Current Visit: No Status: Acute Code(s): I10 - ESSENTIAL (PRIMARY) HYPERTENSION (7) Hypertensive urgency Current Visit: No Status: Acute Code(s): I16.0 - HYPERTENSIVE URGENCY (8) Status post right knee replacement Current Visit: No Status: Acute Code(s): Z96.651 - PRESENCE OF RIGHT ARTIFICIAL KNEE JOINT - Plan 57 yo AAF here after R knee hematoma evacuation found to have atrial fibrillation and hypertensive urgency 1. POD #0 - Mgmt per Primary Reserve Team 2. Atrial fibrillation - NSR at this time - Estimate time in a fib < 2 hours - Continue dilt drip if BP tolerates for both rate/rhythm control and BP mgmt - Reports never seeing blasting entryman for this in the past - Cardiology consult in a.m. - Will add troponin to labs, no chest pain - Will hold anticoagulation at this time as admission for hematoma and no longer in a fib - Discussion to follow regarding indication for chronic anticoagulation 3. Hypertensive urgency - Dilt drip currently - Resume home meds 4. GERD - Home PPI 5. CKD 2 - Monitor, dose meds appropriately - Will check CMP 6. Iron deficiency anemia - Will check CBC and iron studies Dispo/Anticoagulation: Per primary team FMR H&P: Upper Level - Plan Date/Time: 10/01/18 8249 Addendum - Attending - Attending Attestation Date/Time: 10/02/18 105 I personally evaluated the patient and discussed the management with Dr. Melvin. I agree with the History, Examination, Assessment and Plan documented above with any addition or exceptions noted below. The patient was admitted with hematoma following knee replacement that required repeat closure per pt. During this pt went into a.fib with RVR and was started on a cardizem drip. She is now in a sinus rhythm. There is a question whether she has had a.fib in the past and pt is unsure. Will titrate drip and likely consult cardiology.
[2018-10-02] MEDS: HYDROcodone/Acetaminophen 10/325 mg Tablet PO PRN ×6 (02:15→22:28)
[2018-10-02 05:32] LABS: #Eosinphils 0.5 thou/uL (0.0-0.7); #Lymphocytes 2.3 thou/uL (1.20-3.40); #Monocytes 1.1 thou/uL (0.11-0.59); #Neutrophils 9.9 thou/uL (1.40-6.50); %Basophils 0.3 % (0.0-1.0); %Eosinophils 3.8 % (0.0-10.0); %Lymphocytes 16.7 % (21.0-51.0); %Monocytes 7.6 % (0.0-10.0); %Neutrophils 71.5 % (42.0-75.0); Hemoglobin 9.1 g/dL (12.0-16.0); Mean Corpuscular Hemoglobin 27.3 pg (27.0-31.0); Mean Corpuscular Volume 85.3 fL (78.0-98.0); Mean Platelet Volume 7.7 fL (7.4-10.4); Platelet Count 313 thou/uL (130-400); RBC Distribution Width 13.9 % (11.5-14.5); Red Blood Cell (RBC) Count 3.33 mill/uL (4.20-5.40); White Blood Cell (WBC) Count 13.8 thou/uL (4.8-10.8)
[2018-10-02 05:49] LABS: ALT (SGPT) 16 U/L (8-55); AST (SGOT) 13 U/L (5-34); Albumin 3.3 g/dL (3.5-5.0); Alkaline Phosphatase 109 U/L (40-150); Anion Gap 14 mmol/L (10-20); BUN (Urea Nitrogen) 17 mg/dL (9.8-20.1); Bilirubin, Total 0.4 mg/dL (0.2-1.2); Calc. Creatinine Clearance 98 mL/min (70-130); Calcium 8.7 mg/dL (7.8-10.44); Carbon Dioxide 23 mmol/L (22-29); Chloride 105 mmol/L (98-107); Estimated GFR-MDRD 61; Globulin 3.3 g/dL (2.4-3.5); Glucose 114 mg/dL (70-105); Iron 18 ug/dL (50-170); Iron Binding Capacity, Total 204 mcg/dL (265-497); Potassium 4.5 mmol/L (3.5-5.1); Protein, Total 6.6 g/dL (6.0-8.3); Sodium 137 mmol/L (136-145)
[2018-10-02] MEDS: cloNIDine 0.1 MG TAB PO PRN ×2 (06:35→14:38)
--- NOTE | 2018-10-02 07:15 | PDOC.FM ---
- Subjective Subjective: Pt doing well this AM. Reportedly has been back in NSR since she got to telemetry at 2200 last night. Still on dilt gtt at rate of 5. Reports she has hx of A-fib first diagnosed approx. 1 year ago. She notes she was on blood thinners while she was in the hospital when she was diagnosed but was not sent home on any. She notes she has never seen cardiology for her a-fib before. No acute complaints this AM. Reports she just got her AM pain meds and are waiting for them to kick in. Denies any CP/SOB/palpitations. - Objective MAR Reviewed: Yes Vital Signs & Weight: Vital Signs (12 hours) Temp Pulse Resp BP BP Pulse Ox 10/02/18 06:35 190/88 H 10/02/18 04:06 97.9 F 89 18 134/71 96 10/01/18 21:30 99.0 F 93 18 203/108 H 203/108 H 99 Weight Weight 111.039 kg I&O: 10/01/18 10/02/18 10/03/18 06:59 06:59 06:59 Intake Total 360 Output Total 900 Balance -540 Result Diagrams: 10/02/18 04:48 10/02/18 04:48 Phys Exam - Physical Examination Constitutional: NAD HEENT: PERRLA, moist MMs Respiratory: clear to auscultation bilateral Cardiovascular: RRR, no significant murmur Gastrointestinal: soft, non-tender, positive bowel sounds Neurological: moves all 4 limbs Psychiatric: normal affect, A&O x 3 Dx/Plan (1) Atrial fibrillation Code(s): I48.91 - UNSPECIFIED ATRIAL FIBRILLATION Status: Acute Plan: Pt reports a hx of this in the past during a prior hospitalization a year ago It appears she was hospitalized here at [facility] for hypertensive urgency, but I do not see a mention of A-fib in her H&P or discharge summary She had a nuclear stress test performed on 06/22/17 which was grossly normal, but does not appear that she has had an echocardiogram There is question if this in fact new onset a-fib or not, as I question her getting this diagnosis without having cardiology consulted to see her while in the hospital as this is standard practice for this diagnosis Pt is currently back in NSR, but still on the dilt gtt at rate of 5 this AM BP significantly improved She has gotten her outpatient BP medications already this morning We will go ahead and wean completely off the diltiaze gtt now she is back in NSR and cont. to monitor on tele I do not see any documentation of her ever being in RVR, and only w/ elevated BP 's Dilt can be restarted if she does go back into A-fib and does develop RVR I will place a referal for cardiology to stop by and see her this AM and order an echocardiogram to look for any underlying structural heart disease Pt did recently undergo 2 orthopedic procedures, and the stress from this is likely the cause of her developing this arrhythmia Will hold off on starting anticoagulation at this time as she is back in NSR and recently w/ hematoma evac s/p TKA and will defer this decision to cardiology (2) HTN (hypertension) Code(s): I10 - ESSENTIAL (PRIMARY) HYPERTENSION Status: Acute Plan: BP's significantly improved this AM She has already received her home BP meds which she has previously been controlled on Pt is on clonidine outpatient and I do wonder if part of her elevated pressures were 2/2 rebound due to her relatively quick resolution She was placed on a dilt gtt 2/2 being in A-fib, but I doubt that this medication would have had this large of an affect on her pressures Will wean completely off the dilt gtt this AM as she is back in NSR Cont. to monitor BP and adjust home regimen as needed (3) GERD (gastroesophageal reflux disease) Code(s): K21.9 - GASTRO-ESOPHAGEAL REFLUX DISEASE WITHOUT ESOPHAGITIS Status: Acute Plan: Will continue w/ home protonix Addendum - Attending - Attending Attestation Date/Time: 10/02/18 2021 I personally evaluated the patient and discussed the management with Dr. Waterman. I agree with the History, Examination, Assessment and Plan documented above with any addition or exceptions noted below. The patient is in a sinus rhythm. Will titrate off cardizem drip. BP is controlled. Will discuss this possible new onset a.fib [facility] cardiology.
[2018-10-02] MEDS: Losartan 25 MG TAB PO SCH (08:09)
[2018-10-02] MEDS: Aspirin 81 mg Enteric Coated Tablet PO SCH ×2 (08:09→20:34)
--- NOTE | 2018-10-02 09:19 | PDOC.EVN ---
Event Note - Event Note Event Note: Talked with Dr. Early about patient. Since patient converted back to NSR, no longer in RVR, proceed with workup first. Pending echo results Dr. Early agreed to see patient otherwise can be worked up outpatient. Kindly appreciated recommendations.
[2018-10-02 09:23] LABS: INR-International Normal Ratio 1.1; PTT 36.6 SEC (22.9-36.1); Prothrombin Time 14.5 SEC (12.0-14.7)
[2018-10-02] MEDS: Hydrochlorothiazide 25 MG TAB PO SCH (20:33)
[2018-10-03] MEDS: HYDROcodone/Acetaminophen 10/325 mg Tablet PO PRN ×2 (03:08→07:53)
[2018-10-03] MEDS: cloNIDine 0.1 MG TAB PO PRN (03:15)
[2018-10-03] MEDS ORDERED: Hydrochlorothiazide 25 MG TAB PO SCH ×2 (07:15→09:00)
[2018-10-03] MEDS: Losartan 25 MG TAB PO SCH (07:50)
[2018-10-03] MEDS: Aspirin 81 mg Enteric Coated Tablet PO SCH (07:51)
[2018-10-03] MEDS: Hydrochlorothiazide 25 MG TAB PO SCH (07:51)
[2018-10-03] MEDS ORDERED: Labetalol HCl 100 MG/20 ML VIAL SLOW IVP PRN (08:03)
--- NOTE | 2018-10-03 08:46 | PDOC.FM ---
Addendum entered and electronically signed by Judson Waterman MD 10/03/18 10: 11: Discussed plan w/ patient to monitor pressures throughout the morning and plan for discharge if she remains <180 SBP and she is in agreement. States she is wanting to go home today. Reports she has a blood pressure cuff and feels comfortable monitoring pressures at home and taking her clonidine PRN as she was doing this prior to having to come back to the hospital for her hematoma. ER /Return percautions discussed in detail as described below with patient expressing understanding. Counseled need for close outpatient follow-up with her PCP for HTN medication titration while weaning off her clonidine. Original Note: - Subjective Subjective: MIKE overnight, denies any LYN, CP/SOB, focal neuro deficits. Notes that she was previously taking her clonidine twice a day scheduled prior to her recent hospitalization for her knee replacement where she was taken off of this and transitioned to PRN. Reports good control w/ BID dosing previously, but would like to not stay on this medication for her BP if possible 2/2 the concern for rebound HTN and very high BP's. Otherwise no concerns. - Objective MAR Reviewed: Yes Vital Signs & Weight: Vital Signs (12 hours) Temp Pulse Resp BP BP Pulse Ox 10/03/18 05:15 141/88 H 10/03/18 04:09 184/100 H 10/03/18 03:15 98.5 F 81 16 217/105 H 217/105 H 95 Weight Weight 108.998 kg I&O: 10/02/18 10/03/18 10/04/18 06:59 06:59 06:59 Intake Total 360 1000 Output Total 900 250 Balance -540 750 Result Diagrams: 10/02/18 04:48 10/02/18 04:48 Phys Exam - Physical Examination Constitutional: NAD HEENT: PERRLA, moist MMs Respiratory: clear to auscultation bilateral Cardiovascular: RRR, no significant murmur Gastrointestinal: soft, positive bowel sounds Neurological: moves all 4 limbs Dx/Plan (1) HTN (hypertension) Code(s): I10 - ESSENTIAL (PRIMARY) HYPERTENSION Status: Acute Plan: BP's very labile, very responsive to the PRN clonidine she has been getting Discovered today she was taking this scheduled previously and likely we are having trouble controlling her 2/2 the rebound HTN from this Will continue w/ the PRN clonidine for SBP >180 until she can be titrated She is asymptomatic w/o evidence of end organ damage Increased to 12.5 mg of HCTZ today If her pressures remain relatively controlled can likely be d/c'ed home today w / PRN clonidine for SBP >180 until final titration can be completed as an outpatient Discussed ER percautions for development of LYN/CP/SOB/unilateral weakness/ slurred speech/persistently elevated BP >180 SBP or 110 DBP/focal neurological deficits (2) Atrial fibrillation Code(s): I48.91 - UNSPECIFIED ATRIAL FIBRILLATION Status: Acute Plan: Pt reports a hx of this in the past during a prior hospitalization a year ago Discussed w/ cardiology yesterday who reccomended out-patient work-up w/ negative echo and patient back in NSR Likely stress induced w/ recent surgeries Pt will need to follow-up w/ cardiology outpatient for this per their reccomendations (3) GERD (gastroesophageal reflux disease) Code(s): K21.9 - GASTRO-ESOPHAGEAL REFLUX DISEASE WITHOUT ESOPHAGITIS Status: Acute Plan: Will continue w/ home protonix Addendum - Attending - Attending Attestation Date/Time: 10/03/18 1231 I personally evaluated the patient and discussed the management with Dr. Waterman. I agree with the History, Examination, Assessment and Plan documented above with any addition or exceptions noted below. Pt is doing well. She remains in sinus rhythm. Echo showed preserved ejection fraction. We are titrating her antihypertensives and she will have clonidine for prn use until bp is controlled. f/u with PCP tomorrow. OK to d/c today.
[2018-10-03 12:17] VITALS: BP 149/76; TEMP 97.7
--- NOTE | 2018-10-03 14:46 | PDOC.EVN ---
Event Note - Event Note Event Note: Repeat SBP was 147 prior to dc. Patient understand to follow up with PCP for HTN management.
== END 2018-10-03 13:57 | disposition home or self-care (01) ==
LOC: SDC 15:09 → SJJU 19:13 → 2SW 19:39 → 2NO 20:33
PROVIDERS: ADMIT Orthopaedic Surgery; ATTEND Orthopaedic Surgery
PROC: 0J9P0ZZ Drainage of Left Lower Leg Subcutaneous Tissue and Fascia, Open Approach (ICD-10-PCS; principal; 2018-10-03)
DX: M96.840 Postprocedural hematoma of a musculoskeletal structure following a musculoskeletal system procedure (principal); I12.9 Hypertensive chronic kidney disease with stage 1 through stage 4 chronic kidney disease, or unspecified chronic kidney disease; N18.2 Chronic kidney disease, stage 2 (mild); K21.9 Gastro-esophageal reflux disease without esophagitis; D50.9 Iron deficiency anemia, unspecified; M19.90 Unspecified osteoarthritis, unspecified site; I48.0 Paroxysmal atrial fibrillation; I16.0 Hypertensive urgency; Z79.82 Long term (current) use of aspirin; Z79.899 Other long term (current) drug therapy; Z96.651 Presence of right artificial knee joint
CPT/HCPCS: 36415; 80053; 82550; 82553; 82728; 83540; 83550; 84484; 85025; 85610; 85730; 93005; 93010; 93306; G0378; J0690; J1170; J2001; J2550; J2704; J3010; J3370; J3490; J7050

== ENCOUNTER 2018-10-27 06:58 | Emergency (ER) | payer OTHER ==
[2018-10-27 08:19] LABS: #Eosinphils 0.6 thou/uL (0.0-0.7); #Lymphocytes 2.5 thou/uL (1.20-3.40); #Monocytes 0.7 thou/uL (0.11-0.59); #Neutrophils 4.1 thou/uL (1.40-6.50); %Basophils 0.5 % (0.0-1.0); %Lymphocytes 31.7 % (21.0-51.0); %Monocytes 8.3 % (0.0-10.0); %Neutrophils 52.4 % (42.0-75.0); Hemoglobin 10.3 g/dL (12.0-16.0); Mean Corpuscular HGB CONC 32.2 g/dL (32.0-36.0); Mean Corpuscular Hemoglobin 27.5 pg (27.0-31.0); Mean Corpuscular Volume 85.5 fL (78.0-98.0); Mean Platelet Volume 7.4 fL (7.4-10.4); Platelet Count 292 thou/uL (130-400); Red Blood Cell (RBC) Count 3.72 mill/uL (4.20-5.40); White Blood Cell (WBC) Count 7.9 thou/uL (4.8-10.8)
--- NOTE | 2018-10-27 08:32 | ULT ---
ULTRASOUND DOPPLER DUPLEX VENOUS RIGHT LOWER EXTREMITY: DATE: 10/27/2018 HISTORY: 57-year-old female with right lower extremity pain and edema TECHNIQUE: Grayscale, color-flow, and spectral analysis, of major veins of right lower extremity. FINDINGS: There is demonstration of blood flow with normal compressibility, of the right common femoral, profun da femoral, greater saphenous, femoral, popliteal, and posterior tibial, veins. IMPRESSION: Negative. No deep venous thrombosis of right lower extremity.
[2018-10-27 08:37] LABS: ALT (SGPT) 15 U/L (8-55); AST (SGOT) 13 U/L (5-34); Albumin 4.3 g/dL (3.5-5.0); Alkaline Phosphatase 115 U/L (40-150); Anion Gap 12 mmol/L (10-20); BUN (Urea Nitrogen) 22 mg/dL (9.8-20.1); Bilirubin, Total 0.4 mg/dL (0.2-1.2); Calc. Creatinine Clearance 0 mL/min (70-130); Calcium 9.9 mg/dL (7.8-10.44); Carbon Dioxide 25 mmol/L (22-29); Chloride 106 mmol/L (98-107); Estimated GFR-MDRD 65; Glucose 92 mg/dL (70-105); Potassium 4.1 mmol/L (3.5-5.1); Protein, Total 7.3 g/dL (6.0-8.3); Sodium 139 mmol/L (136-145)
--- NOTE | 2018-10-27 08:53 | RAD ---
XR Shoulder Lt 3 View STANDARD: 10/27/2018 7:58 AM CLINICAL INDICATION: Pain COMPARISON: None. FINDINGS: Fracture:No fracture. Arthropathy:Moderate arthropathy. Incidental findings:None of significance. IMPRESSION: 1. No acute osseous abnormality. 2. Moderate osteoarthritis.
--- NOTE | 2018-10-27 09:38 | RAD ---
PORTABLE CHEST: Date: 10/27/18 PROVIDED CLINICAL HISTORY: Pain. FINDINGS: Comparison with 12/14/17. Cardiac and mediastinal silhouette is unchanged in appearance. No focal consolidation, pleural fluid, or pneumothorax apparent. IMPRESSION: No evidence for an acute cardiopulmonary process. POS: C
--- NOTE | 2018-10-27 09:42 | RAD ---
RIGHT KNEE RADIOGRAPHS FOUR VIEWS: Date: 10-27-18 Provided Clinical History: Pain. FINDINGS: Post-operative changes of right total knee arthroplasty are demonstrated without evidence for hardwar e complication. There is no evidence for fracture or other acute osseous abnormality. If there is per sistent clinical concern, conservative management and follow up imaging are advised. IMPRESSION: As above. POS: Ora
[2018-10-27] MEDS ORDERED: cloNIDine 0.1 MG TAB ONE (10:00)
[2018-10-27] MEDS ORDERED: Ketorolac Tromethamine 60 MG/2 ML VIAL ONE (10:00)
== END 2018-10-27 10:50 | disposition home or self-care (01) ==
LOC: ERS 06:58
DX: M25.512 Pain in left shoulder (principal); M25.561 Pain in right knee; I10 Essential (primary) hypertension; K21.9 Gastro-esophageal reflux disease without esophagitis; Z79.899 Other long term (current) drug therapy; W19.XXXA Unspecified fall, initial encounter
CPT/HCPCS: 36415; 71045; 80053; 84484; 85025; 93005; 96372; J1885

== ENCOUNTER 2018-12-23 10:11 | Day surgery (SDC) | payer OTHER ==
[2018-12-22 12:18] VITALS: BMI 42.6
[2018-12-23] MEDS ORDERED: ceFAZolin Sodium (SDC) 2 GM/100 ML BAG ONE (10:57)
[2018-12-23] MEDS ORDERED: Bupivacaine HCl 0.5%/Epinephrine 1:200,000/PF 30 ml Vial ONE (11:23)
[2018-12-23] MEDS ORDERED: Midazolam HCl 2 mg/2 ml Vial ONE (11:45)
[2018-12-23] MEDS ORDERED: Fentanyl 100 MCG/2 ML VIAL ONE ×2 (11:46→12:34)
[2018-12-23] MEDS ORDERED: Lidocaine 1% PF 5 ML VIAL ONE (12:35)
[2018-12-23] MEDS ORDERED: Ondansetron PF 4 MG/2 ML Vial ONE (12:35)
[2018-12-23] MEDS ORDERED: Dexamethasone 20 MG/5 ML VIAL ONE (12:35)
[2018-12-23] MEDS ORDERED: PROPOFOL 200 MG/20 ML VIAL ONE (12:35)
--- NOTE | 2018-12-23 13:29 | RAD ---
EXAM: 2 views of the right knee HISTORY: Closed manipulation of knee arthroplasty COMPARISON: 09/28/2018 FINDINGS: A small knee effusion is seen. The patient is status post right knee arthroplasty without p erihardware lucency or fracture. IMPRESSION: No evidence of acute osseous abnormality.
--- NOTE | 2018-12-24 14:08 | OP ---
DATE OF PROCEDURE: 12/23/2018 PREOPERATIVE DIAGNOSIS: Right total knee postoperative stiffness. POSTOPERATIVE DIAGNOSIS: Right total knee postoperative stiffness. PROCEDURE PERFORMED: Right knee manipulation under anesthesia. ANESTHESIOLOGIST: Harjinder Epstein MD ANESTHESIA: The patient received a LMA. ESTIMATED BLOOD LOSS: None. TOURNIQUET TIME: None. IMPLANTS: None. ANTIBIOTICS: Ancef 2 g. COMPLICATION: None. HISTORY OF PRESENT ILLNESS: Ms. Weston is a 58-year-old female 12 weeks status post right total knee arthroplasty. She had stiffness postoperatively. I discussed the risks and benefits of a total knee manipulation to include pain, scar, bleeding, infection, fracture, need for further surgeries, revision, loss of life or limb. She understood these risks and benefits and elected to proceed. DESCRIPTION OF PROCEDURE: Time-out was performed designating the patient's right lower extremity as the operative site based on site, consents, and marking. After time-out, measured the patient's leg with a goniometer extended her knee getting about - 5 to -10 degrees of extension. I flexed her knee, she got about 90 degrees. She went to 127 of flexion and 5-10 degrees of flexion. The patient had roughly a total of improvement of 40 degrees of motion. The patient's x-rays were taken AP and lateral to show her extension as well as no fracture line. After completing our procedure, we then sent the patient back to Day Stay. She will be discharged home after working with PT. She had a femoral block, which likely will help her with pain control, but it may give her some quad dysfunction for short period of time and KI if needed to go home to make sure she has no falls. She is to use her walker and will be sent to physical therapy in the morning. Job ID: [id number] [facility]
== END 2018-12-23 16:30 | disposition home or self-care (01) ==
LOC: SDC 10:11
PROVIDERS: ATTEND Orthopaedic Surgery
PROC: 0SSCXZZ Reposition Right Knee Joint, External Approach (ICD-10-PCS; principal; 2018-12-23)
DX: T84.89XA Other specified complication of internal orthopedic prosthetic devices, implants and grafts, initial encounter (principal); M25.661 Stiffness of right knee, not elsewhere classified; I10 Essential (primary) hypertension; F32.9 Major depressive disorder, single episode, unspecified; Z96.651 Presence of right artificial knee joint; Z88.8 Allergy status to other drugs, medicaments and biological substances; Z79.82 Long term (current) use of aspirin; Z79.899 Other long term (current) drug therapy
CPT/HCPCS: J0690; J2250; J3010

== ENCOUNTER 2019-06-24 17:31 | Emergency (ER) | payer OTHER ==
[2019-06-24 18:31] LABS: #Basophils 0.1 thou/uL (0.0-0.2); #Eosinphils 0.2 thou/uL (0.0-0.7); #Lymphocytes 3.2 thou/uL (1.20-3.40); #Monocytes 0.6 thou/uL (0.11-0.59); #Neutrophils 5.4 thou/uL (1.40-6.50); %Eosinophils 2.5 % (0.0-10.0); %Lymphocytes 33.3 % (21.0-51.0); %Monocytes 6.6 % (0.0-10.0); %Neutrophils 56.7 % (42.0-75.0); Hemoglobin 13.7 g/dL (12.0-16.0); Mean Corpuscular HGB CONC 31.5 g/dL (32.0-36.0); Mean Corpuscular Hemoglobin 26.2 pg (27.0-31.0); Mean Corpuscular Volume 83.3 fL (78.0-98.0); Mean Platelet Volume 8.2 fL (7.4-10.4); Platelet Count 365 thou/uL (130-400); RBC Distribution Width 14.2 % (11.5-14.5); Red Blood Cell (RBC) Count 5.25 mill/uL (4.20-5.40); White Blood Cell (WBC) Count 9.5 thou/uL (4.8-10.8)
--- NOTE | 2019-06-24 18:51 | RAD ---
SINGLE VIEW OF THE CHEST: 06/24/19 COMPARISON: 10/27/18. HISTORY: Chest pain and hypertension. FINDINGS: Single view of the chest shows a normal sized cardiomediastinal silhouette. There is no evidence of c onsolidation, mass, or pleural effusion. The bones are unremarkable. IMPRESSION: No evidence of acute cardiopulmonary disease. POS: C
[2019-06-24 18:52] LABS: ALT (SGPT) 11 U/L (8-55); AST (SGOT) 13 U/L (5-34); Albumin 4.6 g/dL (3.5-5.0); Alkaline Phosphatase 121 U/L (40-110); Anion Gap 15 mmol/L (10-20); BUN (Urea Nitrogen) 23 mg/dL (9.8-20.1); Bilirubin, Total 0.4 mg/dL (0.2-1.2); Calc. Creatinine Clearance 0 mL/min (70-130); Calcium 10.4 mg/dL (7.8-10.44); Carbon Dioxide 26 mmol/L (22-29); Chloride 103 mmol/L (98-107); Estimated GFR-MDRD 44; Globulin 3.8 g/dL (2.4-3.5); Glucose 142 mg/dL (70-105); Lipase 29 U/L (8-78); Potassium 4.4 mmol/L (3.5-5.1); Protein, Total 8.4 g/dL (6.0-8.3); Sodium 140 mmol/L (136-145)
== END 2019-06-24 19:21 | disposition left against medical advice (07) ==
LOC: ERS 17:31
DX: Z53.21 Procedure and treatment not carried out due to patient leaving prior to being seen by health care provider (principal)
CPT/HCPCS: 36415; 71045; 80053; 83690; 84484; 85025; 93005

== ENCOUNTER 2020-07-09 13:52 | Outpatient (CLI) | payer OTHER ==
--- NOTE | 2020-07-09 14:33 | MMO ---
Bilateral MAMMO Bilat Screen [facility]. CLINICAL HISTORY: Patient is 59 years old and is seen for screening. The patient has no family history of breast cancer. The patient has a history of malignant (generic) in the left breast in 2013. The patient has a history of right Ultrasound Guided Core Biopsy in 2013 - benign, left Ultrasound Guided Core Biopsy in 2013 - malignant and left Lumpectomy in 2013 - malignant. VIEWS: The views performed were: bilateral craniocaudal with tomosynthesis and bilateral mediolateral oblique with tomosynthesis. FILMS COMPARED: The present examination has been compared to prior imaging studies performed at and at [facility] on 08/12/2018. This study has been interpreted with the assistance of computer-aided detection. MAMMOGRAM FINDINGS: There are scattered fibroglandular densities. There are stable benign appearing calcifications seen in both breasts. There are no suspicious masses, suspicious calcifications, or new areas of architectural distortion. IMPRESSION: THERE IS NO MAMMOGRAPHIC EVIDENCE OF MALIGNANCY. A ROUTINE FOLLOW-UP MAMMOGRAM IN 1 YEAR IS RECOMMENDED. THE RESULTS OF THIS EXAM WERE SENT TO THE PATIENT. ACR BI-RADS Category 2 - Benign finding MAMMOGRAPHY NOTE: 1. A negative mammogram report should not delay a biopsy if a dominant of clinically suspicious mass is present. 2. Approximately 10% to 15% of breast cancers are not detected by mammography. 3. Adenosis and dense breasts may obscure an underlying neoplasm. Reported by: JESSICA WARREN MD Electonically Signed: [id number]
== END 2020-07-09 13:53 | disposition home or self-care (01) ==
LOC: BICMAMMO 13:52
PROVIDERS: ATTEND Student in an Organized Health Care Education/Training Program
DX: Z12.31 Encounter for screening mammogram for malignant neoplasm of breast (principal); Z85.3 Personal history of malignant neoplasm of breast; Z91.89 Other specified personal risk factors, not elsewhere classified; Z98.890 Other specified postprocedural states
CPT/HCPCS: 77063; 77067

== ENCOUNTER 2020-08-08 14:10 | Outpatient (CLI) | payer OTHER | END 2020-08-08 14:11 | disposition home or self-care (01) | LOC: BICULT 14:10 | PROVIDERS: ATTEND Internal Medicine Nephrology | DX: I12.9 Hypertensive chronic kidney disease with stage 1 through stage 4 chronic kidney disease, or unspecified chronic kidney disease (principal); N18.2 Chronic kidney disease, stage 2 (mild); N28.1 Cyst of kidney, acquired | CPT/HCPCS: 76770; 93975 ==

== ENCOUNTER 2023-03-25 11:45 | Outpatient (CLI) | payer BC, OTHER | END 2023-03-25 11:46 | disposition home or self-care (01) | LOC: BICMAMMO 11:45 | PROVIDERS: ATTEND Family Medicine | DX: Z12.31 Encounter for screening mammogram for malignant neoplasm of breast (principal); Z85.3 Personal history of malignant neoplasm of breast; Z98.890 Other specified postprocedural states | CPT/HCPCS: 77063; 77067 ==